=== PATIENT | male | born 1975 | race Caucasian/White ===

== ENCOUNTER → 2020-03-08 | Outpatient (CLI) | payer BC ==
[~2020-03-08] MED LIST: ASCO500; FISH1000; IBUP600 PO; IBUP800 PO; LISI20 PO; METF500 PO; MULTI VITAMIN1 EACH; Percocet 5-3251 EACH PO; Prinivil10 MG; [UNRECOGNIZED DRUG - OTHER]
== END ==
LOC: LAB SHORT 19:31
DX: U07.1 COVID-19 (principal)
CPT/HCPCS: U0003

== ENCOUNTER → 2024-04-06 | Outpatient (CLI) | payer OTHER ==
[2024-04-06 14:38] LABS: Stool Occult Bld Immuno 1 Negative (NEGATIVE)
== END | disposition home or self-care (01) ==
LOC: LAB 07:20 → LAB SHORT 07:20
PROVIDERS: Physician Assistant
DX: Z12.11 Encounter for screening for malignant neoplasm of colon (principal)
CPT/HCPCS: G0328